=== PATIENT | female | born 1965 | race Two or more races ===

== ENCOUNTER 2018-12-25 20:58 | Inpatient (IN) | payer BC, OTHER ==
[~2018-12-25] VITALS: Ht 152.4 cm; Wt 73.5 kg
[2018-12-25 21:44] LABS: HCG UR SG 1.012 (1.003-1.030); MICROSCOPIC AUTO
[2018-12-25 21:46] LABS: CULTURE INDICATED? NO
[2018-12-25 21:50] LABS: MEAN CORPUSCULAR HEMOGLOBIN 19.6 pg (27.0-34.8); MEAN CORPUSCULAR VOLUME 67.9 fL (80-100); MEAN PLATELET VOLUME 8.9 fL (7.4-10.4); PLATELET COUNT 254 x10^3/uL (130-400); RED BLOOD COUNT 3.17 x10^6/uL (3.82-5.3); RED CELL DISTRIBUTION WIDTH 19.3 % (9.6-15.2)
[2018-12-25 21:52] LABS: MEAN CORPUSCULAR HGB CONC 28.9 g/dL (32.4-35.8)
[2018-12-25] MEDS ORDERED: PANTOPRAZOLE 80 MG in SODIUM CHLORIDE 0.9% 100 ML IV SCH (21:53)
[2018-12-25 21:58] LABS: ALANINE AMINOTRANSFERASE 17 U/L (12-78); ANION GAP 5 mmol/L (5-15); BASOPHILS # (AUTO) 0.03 x10^3/uL (0-0.1); BASOPHILS % (AUTO) 1 % (0-1); CALCIUM 8.1 mg/dL (8.5-10.1); CHLORIDE 110 mmol/L (98-107); CREATININE 0.63 mg/dL (0.55-1.02); EOSINOPHILS # (AUTO) 0.09 x10^3/uL (0-0.4); EOSINOPHILS % (AUTO) 2 % (1-7); LYMPHOCYTES # (AUTO) 1.19 x10^3/uL (1-3.4); LYMPHOCYTES % (AUTO) 26 % (22-44); MD MORPH REVIEW ONLY; MONOCYTES # (AUTO) 0.39 x10^3/uL (0.2-0.8); MONOCYTES % (AUTO) 9 % (2-9); NEUTROPHILS # (AUTO) 2.95 x10^3/uL (1.8-6.8); NEUTROPHILS % (AUTO) 63 % (42-75)
[2018-12-25 21:59] LABS: ANISOCYTOSIS 1+; HYPOCHROMIA 1+; MICROCYTOSIS 1+; OVALOCYTES 1+; TEAR DROPS 1+
[2018-12-25] MEDS ORDERED: PANTOPRAZOLE 40 MG IV IVPush ONE (22:00)
[2018-12-25 22:02] LABS: <PLATELET ESTIMATE> ADEQUATE; ALKALINE PHOSPHATASE 77 U/L (45-117); BILIRUBIN,TOTAL < 0.1 mg/dL (0.2-1.0); LARGE PLATELETS 1+; TOTAL PROTEIN 6.4 g/dL (6.4-8.2); TROPONIN I < 0.015 ng/mL (0.000-0.045)
--- NOTE | 2018-12-25 22:05 | NUR ---
Critical H&H documented and MD chhaya IV initated, meds ordered from pharmacy Addendum: 12/25/18 at 2309 by MAMADOU Report to floor RN, pt to be transported after inital 15min check for blood.
[2018-12-25 22:15] LABS: INTERNATIONAL NORMALIZED RATIO 0.95 (0.93-1.1)
[2018-12-25] MEDS ORDERED: PANTOPRAZOLE 40 MG IV ONE (22:17)
[2018-12-25 22:22] LABS: % IRON SATURATION 5 % (20-55); IRON LEVEL 19 mcg/dL (50-170); TOTAL IRON BINDING CAPACITY 406 mcg/dL (250-450)
--- NOTE | 2018-12-25 22:30 | NUR ---
in for recheck, pt verbalized understanding of blood administration including risks. Consent signed and placed on chart.
--- NOTE | 2018-12-25 22:32 | NUR ---
Per MD hold protonix drip, but give inital push.
--- NOTE | 2018-12-25 22:56 | NUR ---
Purple slip sent to blood bank
[2018-12-25] MEDS ORDERED: POTASSIUM CHLORIDE 20 MEQ TAB.ER.PRT ONE (23:00)
[2018-12-25] MEDS ORDERED: POTASSIUM CHLORIDE 20 MEQ TAB.ER.PRT PO ONE (23:00)
[2018-12-25 23:01] VITALS: BP 131/54
--- NOTE | 2018-12-25 23:14 | NUR ---
Pt denies any s/s of reaction, see transfusions for recent VS
[2018-12-25 23:16] VITALS: BP 139/71
--- NOTE | 2018-12-25 23:26 | NUR ---
Pt ready for transport, pt denies any s/s of reaction upon transfer of care.
--- NOTE | 2018-12-25 23:46 | NUR ---
Hospitalist at bedside, pt to be transported when eval complete
[2018-12-26 00:19] VITALS: BP 120/75
[2018-12-26] MEDS ORDERED: ACETAMINOPHEN 325 MG TABLET PO PRN (00:30)
[2018-12-26] MEDS ORDERED: ONDANSETRON ODT 4 MG PO PRN (00:30)
[2018-12-26] MEDS ORDERED: DOCUSATE 100 MG CAPSULE PO PRN (00:30)
[2018-12-26] MEDS ORDERED: TEMAZEPAM 15 MG CAPSULE PO PRN (00:30)
[2018-12-26] MEDS ORDERED: hydrALAzine 20 MG/ML, 1ML IVPush PRN (00:30)
[2018-12-26 01:25] VITALS: BP 120/70
[2018-12-26 01:39] VITALS: BP 123/80
[2018-12-26 07:02] VITALS: BP 107/69
[2018-12-26] MEDS: FERROUS SULFATE 325 MG TABLET PO SCH (07:54)
[2018-12-26] MEDS ORDERED: PANTOPRAZOLE 40 MG IV IVPush SCH (09:00)
[2018-12-26 09:13] LABS: MEAN CORPUSCULAR HEMOGLOBIN 21.2 pg (27.0-34.8); MEAN CORPUSCULAR HGB CONC 30.6 g/dL (32.4-35.8); MEAN CORPUSCULAR VOLUME 69.5 fL (80-100); MEAN PLATELET VOLUME 8.7 fL (7.4-10.4); PLATELET COUNT 256 x10^3/uL (130-400); RED BLOOD COUNT 3.93 x10^6/uL (3.82-5.3)
[2018-12-26 09:14] LABS: ANION GAP 6 mmol/L (5-15); CALCIUM 8.1 mg/dL (8.5-10.1); CHLORIDE 110 mmol/L (98-107); CREATININE 0.56 mg/dL (0.55-1.02)
[2018-12-26 09:39] LABS: BASOPHILS % (AUTO) 0 % (0-1); EOSINOPHILS % (AUTO) 2 % (1-7); LYMPHOCYTES # (AUTO) 0.99 x10^3/uL (1-3.4); LYMPHOCYTES % (AUTO) 23 % (22-44); MD SCAN; MONOCYTES # (AUTO) 0.38 x10^3/uL (0.2-0.8); MONOCYTES % (AUTO) 9 % (2-9); NEUTROPHILS # (AUTO) 2.93 x10^3/uL (1.8-6.8); NEUTROPHILS % (AUTO) 67 % (42-75)
[2018-12-26] MEDS ORDERED: POTASSIUM CHLORIDE 20 MEQ TAB.ER.PRT PO ONE (10:00)
[2018-12-26 13:40] VITALS: BP 120/75
[2018-12-26] MEDS ORDERED: PANTOPROZOLE 40MG TABLET PO SCH (17:00)
[2018-12-26 18:52] VITALS: BP 112/71
[2018-12-26] MEDS ORDERED: PANTOPRAZOLE 80 MG in SODIUM CHLORIDE 0.9% 100 ML IV SCH (22:00)
[2018-12-27 01:22] VITALS: BP 118/77
[2018-12-27 05:57] LABS: CHLORIDE 109 mmol/L (98-107)
[2018-12-27 06:04] LABS: ANION GAP 8 mmol/L (5-15); CALCIUM 8.2 mg/dL (8.5-10.1); CREATININE 0.63 mg/dL (0.55-1.02)
[2018-12-27 06:18] LABS: MEAN CORPUSCULAR VOLUME 70.6 fL (80-100); MEAN PLATELET VOLUME 10.7 fL (7.4-10.4); PLATELET COUNT 287 x10^3/uL (130-400); RED BLOOD COUNT 4.06 x10^6/uL (3.82-5.3)
[2018-12-27 06:35] LABS: MEAN CORPUSCULAR HGB CONC 29.8 g/dL (32.4-35.8)
[2018-12-27 06:37] LABS: BASOPHILS % (AUTO) 0 % (0-1); EOSINOPHILS # (AUTO) 0.14 x10^3/uL (0-0.4); EOSINOPHILS % (AUTO) 3 % (1-7); LYMPHOCYTES # (AUTO) 0.68 x10^3/uL (1-3.4); LYMPHOCYTES % (AUTO) 12 % (22-44); MD SCAN; MONOCYTES # (AUTO) 0.42 x10^3/uL (0.2-0.8); MONOCYTES % (AUTO) 7 % (2-9); NEUTROPHILS # (AUTO) 4.44 x10^3/uL (1.8-6.8); NEUTROPHILS % (AUTO) 78 % (42-75)
[2018-12-27 07:25] VITALS: BP 123/84
[2018-12-27] MEDS ORDERED: POTASSIUM CHLORIDE 20 MEQ TAB.ER.PRT PO ONE (07:30)
[2018-12-27] MEDS: PANTOPRAZOLE 20MG TABLET PO SCH ×2 (08:14→16:10)
[2018-12-27] MEDS: FERROUS SULFATE 325 MG TABLET PO SCH (08:14)
[2018-12-27] MEDS ORDERED: IRON SUCROSE COMPLEX 100MG/5ML IV SCH (09:00)
[2018-12-27] MEDS ORDERED: PANT20TA3 PO (13:12)
[2018-12-27] MEDS ORDERED: FERR-51 PO (13:12)
[2018-12-27 13:47] VITALS: BP 128/82
== END 2018-12-27 16:40 | disposition home or self-care (01) | DRG 392 ==
LOC: ED 23:28 → EDIP 23:29 → 3NE 12-26 → DCLOUNGE 12-27 16:29
PROVIDERS: ADMIT Family Medicine; ATTEND Family Medicine
PROC: 30233N1 Transfusion of Nonautologous Red Blood Cells into Peripheral Vein, Percutaneous Approach (ICD-10-PCS; principal; 2018-12-25)
DX: R10.9 Unspecified abdominal pain (principal); D50.0 Iron deficiency anemia secondary to blood loss (chronic); E66.9 Obesity, unspecified; Z68.31 Body mass index [BMI] 31.0-31.9, adult; E87.6 Hypokalemia; K59.00 Constipation, unspecified
CPT/HCPCS: 36415; 74022; 80048; 80053; 80307; 81001; 81025; 82728; 83540; 83550; 83690; 83735; 84484; 85014; 85018; 85025; 85610; 85730; 86850; 86900; 86923; 93005; G0378; J1756; C9113; P9016